=== PATIENT | female | born 1960 | race Caucasian/White ===

== ENCOUNTER → 2017-09-18 | Outpatient (CLI) | payer OTHER, BC ==
[~2017-09-18] MED LIST: DOXY100 PO; Norco 5-325 Ta1 EACH PO
== END | disposition home or self-care (01) ==
LOC: LAB EV 15:00
DX: Z20.9 Contact with and (suspected) exposure to unspecified communicable disease (principal)
CPT/HCPCS: 86803; 87389

== ENCOUNTER → 2018-02-03 | Outpatient (CLI) | payer OTHER, BC ==
[2018-02-05 07:17] LABS: HCV ANTIBODY <0.1 (0.0-0.9); HIV SCREEN 4TH GENERATION WRFX Non Reactive (Non Reactive)
== END | disposition home or self-care (01) ==
LOC: LAB SHORT 15:09 → LAB EV 15:09
PROVIDERS: Family Medicine
DX: Z20.9 Contact with and (suspected) exposure to unspecified communicable disease (principal)
CPT/HCPCS: 84460; 86317; 86803; 87389

== ENCOUNTER → 2019-09-18 | Outpatient (CLI) | payer BC ==
[2019-09-18 09:06] LABS: CHOL/HDL RATIO 2.4; Cholesterol 231 mg/dL (50-200); HDL Cholesterol 96 mg/dL (>39); LDL/HDL RATIO 1.3; Low Density Lipoprotein Chol 121 mg/dL (0-110); Triglycerides 69 mg/dL (30-160); Very Low Density Lipoprot Chol 13 mg/dL (6-32)
== END | disposition home or self-care (01) ==
LOC: LAB SHORT 08:24 → LAB 08:24
PROVIDERS: Family Medicine
DX: E78.49 Other hyperlipidemia (principal)
CPT/HCPCS: 80061